=== PATIENT | female | born 1930 | race Caucasian/White ===

== ENCOUNTER 2016-06-21 10:59 | Emergency (ER) | payer MEDICARE, OTHER ==
[~2016-06-21 10:59] MED LIST: FOLIC ACID 1 MG1 MG PO
== END 2016-06-21 11:40 | disposition home or self-care (01) ==
LOC: ER1 10:59
DX: L25.9 Unspecified contact dermatitis, unspecified cause (principal); I10 Essential (primary) hypertension; E11.9 Type 2 diabetes mellitus without complications; E78.5 Hyperlipidemia, unspecified; I25.810 Atherosclerosis of coronary artery bypass graft(s) without angina pectoris; Z95.1 Presence of aortocoronary bypass graft; Z95.5 Presence of coronary angioplasty implant and graft; Z79.82 Long term (current) use of aspirin; Z79.891 Long term (current) use of opiate analgesic; Z79.899 Other long term (current) drug therapy
CPT/HCPCS: 96372; 99282; J1100